=== PATIENT | male | born 1960 | race Caucasian/White ===

== ENCOUNTER 2020-03-27 06:39 | Day surgery (SDC) | payer OTHER, BC ==
[~2020-03-27] VITALS: Ht 167.6 cm; Wt 81.9 kg
[~2020-03-27 06:39] MED LIST: LIDOCAINE/PF 1%-EPI 1:200K, 30 ML ONE; ROPIvacaine/PF 0.5%, 30 ML ONE
[2020-03-27] MEDS ORDERED: LACTATED RINGERS 1,000 ML IV SCH (06:48)
[2020-03-27 06:56] VITALS: BP 146/77
[2020-03-27] MEDS ORDERED: LIDOCAINE-MPF 1%, 2ML INFIL ONE (07:00)
[2020-03-27] MEDS ORDERED: CHLORHEXIDINE 15 ML UDC MM ONE (07:00)
[2020-03-27] MEDS ORDERED: ACETAMINOPHEN 500 MG TABLET PO ONE (07:00)
[2020-03-27] MEDS ORDERED: SCOPOLAMINE 1MG PATCH TD SCH (07:00)
[2020-03-27] MEDS ORDERED: GABAPENTIN 300 MG CAPSULE PO ONE (07:00)
[2020-03-27] MEDS ORDERED: MIDAZOLAM 1 MG/ML, 2ML ONE (07:36)
[2020-03-27] MEDS ORDERED: FENTANYL PF 250 MCG/5ML ONE (07:36)
[2020-03-27] MEDS ORDERED: PROPOFOL 10 MG/ML, 20ML ONE (07:38)
[2020-03-27] MEDS ORDERED: KETOROLAC 30 MG/1 ML ONE (07:38)
[2020-03-27] MEDS ORDERED: CEFAZOLIN 1,000 MG ONE (07:38)
[2020-03-27] MEDS ORDERED: FENTANYL PF 100 MCG/2ML IV PRN (09:00)
[2020-03-27] MEDS ORDERED: HYDROmorphone 1 MG/ML, 1ML INJ IVPush PRN (09:00)
[2020-03-27] MEDS ORDERED: LABETALOL 5MG/ML, 20ML IV PRN (09:00)
[2020-03-27] MEDS ORDERED: ACETAMINOPHEN 325 MG TABLET PO PRN (09:00)
[2020-03-27] MEDS ORDERED: ONDANSETRON 2MG/ML, 2ML IVPush PRN (09:00)
[2020-03-27] MEDS ORDERED: hydrALAzine 20 MG/ML, 1ML IV PRN (09:00)
[2020-03-27] MEDS ORDERED: MEPERIDINE/PF 25MG/0.5ML IVPush PRN (09:00)
[2020-03-27] MEDS ORDERED: OXYcodone 5 MG/5 ML ORAL.SOL UDC PO PRN (09:00)
[2020-03-27] MEDS ORDERED: morphine SULFATE 10 MG/ML, 1ML IVPush PRN (09:00)
[2020-03-27] MEDS ORDERED: GLYCOPYRROLATE 0.4 MG/2 ML, 2ML ONE (10:15)
[2020-03-27] MEDS ORDERED: GLYCOPYRROLATE 0.2MG/1ML, 5ML IVPush ONE (10:30)
== END 2020-03-27 11:40 | disposition home or self-care (01) ==
LOC: OUT 06:39
PROVIDERS: ATTEND Orthopaedic Surgery
DX: S83.231A Complex tear of medial meniscus, current injury, right knee, initial encounter (principal); Z11.59 Encounter for screening for other viral diseases; M94.261 Chondromalacia, right knee; M65.861 Other synovitis and tenosynovitis, right lower leg; M67.51 Plica syndrome, right knee; I10 Essential (primary) hypertension; Z91.018 Allergy to other foods; Z98.890 Other specified postprocedural states; Z82.3 Family history of stroke; X58.XXXA Exposure to other specified factors, initial encounter; Y93.89 Activity, other specified; Y92.89 Other specified places as the place of occurrence of the external cause; Y99.8 Other external cause status
CPT/HCPCS: 29876; 29881; J0690; J1885; J2250; J2704; J2795; J3010; J3490; J7120; U0001

== ENCOUNTER 2020-05-01 16:34 | Emergency (ER) | payer OTHER, BC ==
[~2020-05-01] VITALS: Ht 172.7 cm; Wt 87.3 kg
--- NOTE | 2020-05-01 18:46 | NUR ---
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
[2020-05-01 19:28] LABS: BASOPHILS # (AUTO) 0.01 x10^3/uL (0-0.1); BASOPHILS % (AUTO) 0 % (0-1); EOSINOPHILS # (AUTO) 0.17 x10^3/uL (0-0.4); EOSINOPHILS % (AUTO) 4 % (1-7); LYMPHOCYTES # (AUTO) 1.22 x10^3/uL (1-3.4); LYMPHOCYTES % (AUTO) 29 % (22-44); MD NO; MEAN CORPUSCULAR HGB CONC 33.5 g/dL (33.2-36.2); MEAN CORPUSCULAR VOLUME 89.4 fL (81-97); MEAN PLATELET VOLUME 7.4 fL (7.4-10.4); MONOCYTES # (AUTO) 0.36 x10^3/uL (0.2-0.8); MONOCYTES % (AUTO) 9 % (2-9); NEUTROPHILS # (AUTO) 2.42 x10^3/uL (1.8-6.8); NEUTROPHILS % (AUTO) 58 % (42-75); PLATELET COUNT 181 x10^3/uL (130-400); RED BLOOD COUNT 4.79 x10^6/uL (4.38-5.82); RED CELL DISTRIBUTION WIDTH 13.4 % (9.4-14.8)
[2020-05-01 19:37] LABS: ALBUMIN 3.9 g/dL (3.4-5.0); ANION GAP 6 mmol/L (5-15); CALCIUM 8.6 mg/dL (8.5-10.1); CHLORIDE 107 mmol/L (98-107); CREATININE 0.86 mg/dL (0.7-1.3)
--- NOTE | 2020-05-01 19:53 | NUR ---
pt resting comfortably in bed with at bedside. pt awaiting lab results. vss call light in reach.
[2020-05-01 19:54] VITALS: BP 141/77
--- NOTE | 2020-05-01 20:47 | NUR ---
Patient/Caregiver given discharge instructions and they have confirmed that they understand the instructions. Patient ambulatory with steady gait. pt to follow up with gi. encouraged to return to the er if any new or worsening symptoms arise.
== END 2020-05-01 20:50 | disposition home or self-care (01) ==
LOC: ED 20:35
DX: K60.0 Acute anal fissure (principal)
CPT/HCPCS: 36415; 80048; 82040; 85025; 99283